=== PATIENT | male | born 1955 | race Caucasian/White ===

== ENCOUNTER 2020-05-27 21:16 | Emergency (ER) | payer MEDICARE, OTHER ==
[~2020-05-27] VITALS: Ht 193 cm; Wt 72.7 kg
--- NOTE | 2020-05-27 21:52 | NUR ---
Pt reports the time of injury was approximately 1830 today.
[2020-05-27] MEDS ORDERED: NO HOME MEDS (22:06)
[2020-05-27 22:58] VITALS: BP 132/92
[2020-05-27] MEDS ORDERED: HYDROcodone/acetaminophen 5mg/325mg tablet PO ONE (23:20)
[2020-05-27] MEDS ORDERED: ondansetron 4mg rapidly disintigrating tab PO ONE (23:20)
[2020-05-28] MEDS ORDERED: HYDR-4383 PO (00:03)
[2020-05-28] MEDS ORDERED: ONDA4TAB6 PO (00:03)
== END 2020-05-28 00:21 | disposition home or self-care (01) ==
LOC: ER 21:16
DX: S72.115A Nondisplaced fracture of greater trochanter of left femur, initial encounter for closed fracture (principal); M25.552 Pain in left hip; Z88.0 Allergy status to penicillin; Z79.899 Other long term (current) drug therapy; W19.XXXA Unspecified fall, initial encounter; Y93.89 Activity, other specified; Y92.89 Other specified places as the place of occurrence of the external cause; Y99.8 Other external cause status
CPT/HCPCS: 73502; 99284